=== PATIENT | female | born 1960 | race Caucasian/White ===

== ENCOUNTER → 2023-08-14 17:23 | Outpatient (REF) | payer OTHER, SELFPAY | LOC: RAD 17:23 | PROVIDERS: ATTENDING PHYSICIAN Family Medicine | DX: S96.911A Strain of unspecified muscle and tendon at ankle and foot level, right foot, initial encounter (principal) | CPT/HCPCS: 73610; 73630 ==

== ENCOUNTER → 2023-09-10 14:53 | Outpatient (REF) | payer OTHER, SELFPAY | LOC: HWWDC 14:53 | PROVIDERS: ATTENDING PHYSICIAN Surgery; FAMILY PHYSICIAN Family Medicine | DX: Z12.31 Encounter for screening mammogram for malignant neoplasm of breast (principal) | CPT/HCPCS: 77063; 77067 ==

== ENCOUNTER 2023-09-11 12:34 | Emergency (ER) | payer OTHER, SELFPAY ==
[2023-09-11 12:40] VITALS: BP 132/74
--- NOTE | 2023-09-19 23:15 | ED.GENMED ---
History of Present Illness
General
Chief Complaint: Musculo-Skeletal Complaint
Source: patient
Exam Limitations: none
Time Seen by Provider: 09/11/23 12:56
Nursing documentation reviewed up to this point in time: agreed with
History of Present Illness
History of Present Illness:
Patient is a 62-year-old presents to the ER for evaluation of right fifth finger pain. She reports she slipped and fell this morning and complains of swelling. She denies hitting her head denies any other injuries. Denies any lacerations
abrasions.
Review of Systems
Review of Systems
Allergies reviewed?: Yes
All Other Systems: ROS reviewed and negative except as documented in HPI and ROS
Constitutional: Reports no symptoms
Musculoskeletal: Reports other (right 5th finger pain/injury )
Skin: Reports no symptoms
Neurological: Reports no symptoms
Psychiatric: Reports no symptoms
Phy Exam
General Physical Exam
General Presentation: no apparent distress
General age: appears stated age
General Skin: warm and dry
General Habitus: normal
General Mental: alert
General Hydration: appears well hydrated
Neurological Exam
Neurological Exam: alert and oriented x3
Musculoskeletal Exam
Musculoskeletal Exam: other (rue with strong pulses + mild tenderness to 5th finger mild swelling able to flex/extend )
Skin Exam
Skin Exam: normal color and warm/dry
Psychiatric Exam
Psychiatric Exam: normal mood/affect
Course
Orders/Labs/Results
Orders:
Orders
09/11/23 12:45
CR Finger(s)/thumb Min 2 Vw Rt Urgent
Comment:
Reason For Exam: injury/pain
Indicate Which Finger:: Little Finger
Vital Signs
Initial and Last Documented VS:
Initial Vital Signs
Temp Pulse Resp BP Pulse Ox
97.8 F 68 18 132/74 97
09/11/23 12:40 09/11/23 12:40 09/11/23 12:40 09/11/23 12:40 09/11/23 12:40
Last Documented Vital Signs
Temp Pulse Resp BP Pulse Ox
97.8 F 68 16 132/74 97
09/11/23 12:40 09/11/23 12:40 09/11/23 14:46 09/11/23 12:40 09/11/23 12:40
MDM/Problems Addressed
Differential Diagnosis Includes:
Not limited to fracture sprain contusion
MDM/Problems Addressed:
Symptoms are consistent with contusion no obvious fracture on x-ray. Will DC
*Radiology
Radiology exam reviewed: radiology read reviewed
*Pulse Oximetry
Patient hypoxic: no
*Critical Care Note
Total Time (30-74mins, 75-104mins- exclusive of procedures): Not Applicable
ED Attending Note
-
Portions of this chart may have been created with voice recognition software.� Occasional wrong word or��sound alike� substitutions may have occurred due to the inherent limitations of voice recognition software.
Discharge Plan
Departure
Patient Disposition: Home (Routine Discharge)
Date of Disposition: 09/11/23
Time of Disposition: 14:37
Patient with high blood pressure during this ER visit?: No
Condition: Fair
Covid-19: Not Applicable
Discharge Problem:
Contusion of finger
Instructions: Contusion
Referrals:
Jaden Gutierrez DO [Family Provider] -
Kevin Dodd MD [Active] -
Activity Restrictions/Additional Instructions:
There is no fracture on xray. Symptoms are consistent w/ contusion.
You may wear splint for support and follow-up hand specialist as needed.
Interventions
Interventions:
*Risk Screen - Suicide Last Done: 09/11/23 12:40
*General Assessment Last Done: 09/11/23 13:36
*Neglect/Abuse Screening Last Done: 09/11/23 12:40
ED- Fall Risk Assessment Last Done: 09/11/23 13:28
*ED COVID-19 Vaccine History Last Done: 09/11/23 12:40
*Nursing Disposition Last Done: 09/11/23 14:47
ED-Musculoskeletal Assessment Last Done: 09/11/23 13:37
Discharge Date and Time
Discharge Date/Time: 09/11/23 14:47
Print Language: PORTUGUESE
== END 2023-09-11 14:47 | disposition home or self-care (01) ==
LOC: EMR 12:34
PROVIDERS: EMERGENCY PHYSICIAN Emergency Medicine; FAMILY PHYSICIAN Family Medicine
DX: S60.051A Contusion of right little finger without damage to nail, initial encounter (principal); W01.0XXA Fall on same level from slipping, tripping and stumbling without subsequent striking against object, initial encounter
CPT/HCPCS: 99283; 29130; 73140

== ENCOUNTER → 2024-12-30 10:11 | Outpatient (REF) | payer MEDICARE, OTHER, SELFPAY | LOC: HWWDC 10:11 | PROVIDERS: ATTENDING PHYSICIAN Family Medicine | DX: Z12.31 Encounter for screening mammogram for malignant neoplasm of breast (principal) | CPT/HCPCS: 77063; 77067 ==

== ENCOUNTER → 2024-12-31 07:20 | Outpatient (REF) | payer MEDICARE, OTHER, SELFPAY | LOC: HWRAD 07:20 | PROVIDERS: ATTENDING PHYSICIAN Family Medicine | DX: Z78.0 Asymptomatic menopausal state (principal) | CPT/HCPCS: 77080 ==

== ENCOUNTER → 2025-02-17 13:27 | Outpatient (REF) | payer MEDICARE, OTHER, SELFPAY | LOC: RCS 13:27 | PROVIDERS: ATTENDING PHYSICIAN Student in an Organized Health Care Education/Training Program; FAMILY PHYSICIAN Family Medicine | DX: I49.8 Other specified cardiac arrhythmias (principal); R07.89 Other chest pain; R93.1 Abnormal findings on diagnostic imaging of heart and coronary circulation | CPT/HCPCS: 93017; 93350 ==